=== PATIENT | male | born 1980 | race Native Hawaiian/Other Pacific Islander ===

== ENCOUNTER 2016-12-15 17:59 | Emergency (ER) | payer BC ==
[~2016-12-15] VITALS: Ht 177.8 cm; Wt 130.6 kg
[~2016-12-15 17:59] MED LIST: CLOP75TA2 PO; PRAVASTATIN10 MG PO
[2016-12-15] MEDS ORDERED: ACID CONTROL75 MG OR (18:54)
[2016-12-15 19:26] LABS: PLATELET COUNT 244 K/uL (142-355)
[2016-12-15 21:08] VITALS: BP 144/86; TEMP 98.4
== END 2016-12-15 21:10 | disposition home or self-care (01) ==
LOC: ED 17:59
PROVIDERS: Emergency Medicine
DX: L03.115 Cellulitis of right lower limb (principal)
CPT/HCPCS: 36415; 85027; 85379; 96372; 99283; J1885

== ENCOUNTER 2018-10-26 07:18 | Emergency (ER) | payer OTHER ==
[~2018-10-26] VITALS: Ht 177.8 cm; Wt 100.7 kg
[~2018-10-26 07:18] MED LIST changes: +ACID CONTROL75 MG OR
[2018-10-26 08:01] LABS: PLATELET COUNT 200 K/uL (142-355)
[2018-10-26 08:03] LABS: POTASSIUM 3.7 mmol/L (3.6-5.2)
[2018-10-26 09:27] VITALS: BP 132/83; TEMP 98.5
== END 2018-10-26 09:29 | disposition home or self-care (01) ==
LOC: ED 07:18
PROVIDERS: Emergency Medicine
DX: L03.115 Cellulitis of right lower limb (principal)
CPT/HCPCS: 36415; 80053; 85027; 85379; 96372; 99283; J1885

== ENCOUNTER 2022-01-17 19:39 | Observation (INO) | payer OTHER ==
[~2022-01-17] VITALS: Ht 177.8 cm; Wt 139.8 kg
[2022-01-17 19:50] VITALS: BP 175/99; TEMP 98.7
[2022-01-17 20:00] VITALS: BP 177/120
[2022-01-17] MEDS ORDERED: KETO10TA34 PO (20:07)
[2022-01-17] MEDS ORDERED: CLINDAMYCIN HY300 MG PO (20:07)
[2022-01-17 20:30] VITALS: BP 185/107
[2022-01-17 21:00] VITALS: BP 159/96
[2022-01-17 21:15] LABS: PLATELET COUNT 268 K/uL (142-355)
[2022-01-17 21:18] LABS: POTASSIUM 3.8 mmol/L (3.6-5.2)
[2022-01-17 21:30] VITALS: BP 150/86
[2022-01-17 23:14] VITALS: BP 159/89; TEMP 98; Ht 177.8 cm; Wt 139.8 kg
[2022-01-18] VITALS: BP 159/89; TEMP 98.8
[2022-01-18 04:00] VITALS: BP 149/99; TEMP 98.6
[2022-01-18 08:00] VITALS: BP 157/96; TEMP 98.2
[2022-01-18 12:00] VITALS: BP 145/100; TEMP 98
[2022-01-18 16:00] VITALS: BP 162/100; TEMP 98.1
[2022-01-18 16:59] LABS: PLATELET COUNT 301 K/uL (142-355)
[2022-01-18 17:13] LABS: POTASSIUM 4.2 mmol/L (3.6-5.2)
[2022-01-18 20:00] VITALS: BP 169/97; TEMP 98.7
[2022-01-19] VITALS (7 sets, daily range): BP systolic 140–163; BP diastolic 53–98; TEMP 97.6–99
[2022-01-19 05:44] LABS: PLATELET COUNT 240 K/uL (142-355)
[2022-01-19 06:02] LABS: POTASSIUM 3.9 mmol/L (3.6-5.2)
[2022-01-20 03:27] LABS: POTASSIUM 3.6 mmol/L (3.6-5.2)
[2022-01-20 03:45] LABS: PLATELET COUNT 239 K/uL (142-355)
[2022-01-20 04:00] VITALS: BP 144/91; TEMP 97.5
[2022-01-20 08:00] VITALS: BP 158/92; TEMP 98.2
[2022-01-20 12:00] VITALS: BP 155/96; TEMP 98.1
[2022-01-20 16:00] VITALS: BP 142/91; TEMP 98.4
[2022-01-20 20:00] VITALS: BP 160/80; TEMP 98.7
[2022-01-21] VITALS: BP 156/92; TEMP 98
[2022-01-21 04:00] VITALS: BP 150/80; TEMP 97.8
[2022-01-21 07:03] LABS: PLATELET COUNT 247 K/uL (142-355)
[2022-01-21 07:08] LABS: POTASSIUM 3.9 mmol/L (3.6-5.2)
[2022-01-21 08:00] VITALS: BP 159/95; TEMP 97.9
== END 2022-01-21 15:08 | disposition home or self-care (01) ==
LOC: ED 19:39 → MED/SURG 21:30
PROVIDERS: Hospitalist; ADMIT Family Medicine; ATTEND Family Medicine
DX: L03.115 Cellulitis of right lower limb (principal); E66.01 Morbid (severe) obesity due to excess calories; I10 Essential (primary) hypertension
CPT/HCPCS: 36415; 80053; 80202; 83605; 83735; 84100; 85027; 85379; 85610; 85730; 87040; 87070; 87205; 87635; 96365; 96367; 96372; 96374; 96375; 99220; 99284; G0378; J0133; J1650; J1885; J2270; J2405; J2543; J3370; U0003